=== PATIENT | female | born 1980 | race Caucasian/White ===

== ENCOUNTER 2018-10-26 12:58 | Emergency (ER) | payer SELFPAY ==
[~2018-10-26] VITALS: Ht 160 cm; Wt 63.5 kg
[2018-10-26 13:00] VITALS: BP 129/65
--- NOTE | 2018-10-26 13:50 | PHYS DOC ---
Past Medical History Past Medical History: No Pertinent History Past Surgical History: Alcohol Use: None Drug Use: None Adult General Chief Complaint Chief Complaint: ABDOMINAL PAIN IN HPI HPI Patient is a 38-year-old female, 6, para 4, with one prior ectopic additionally, who presents to the emergency room for evaluation. She states her LMP was at the end of August, and she took a test on Tuesday which was positive. She states that since Tuesday she has had right-sided pelvic cramping and pain. She has not had any fevers or chills, dysuria, vaginal bleeding, or discharge, dizziness, lightheadedness, nausea, vomiting. There are no alleviating or exacerbating factors to the patient's symptoms otherwise. Review of Systems Review of Systems Constitutional: Denies fever or chills [] Eyes: Denies change in visual acuity, redness, or eye pain [] HENT: Denies nasal congestion or sore throat [] Respiratory: Denies cough or shortness of breath [] Cardiovascular: The patient denies any shortness of breath, chest pain, palpitations, or orthopnea[] GI: Denies nausea, vomiting, bloody stools or diarrhea [] : Denies dysuria or hematuria [] Musculoskeletal: Denies back pain or joint pain [] Integument: Denies rash or skin lesions [] Neurologic: Denies headache, focal weakness or sensory changes [] Endocrine: Denies polyuria or polydipsia [] All other systems were reviewed and found to be within normal limits, except as documented in this note. Physical Exam Physical Exam PHYSICAL EXAM: CONSTITUTIONAL: Well developed, well nourished HEAD: normocephalic, atraumatic EENT: PERRL, EOMI. Conjunctivae normal color, sclerae non-icteric; moist mucous membranes. NECK: Supple, non-tender; no meningismus. LUNGS: Lungs CTA, breathing even and unlabored. Normal air movement. HEART: Regular rate and rhythm, no murmur CHEST: No deformity; non-tender ABDOMEN: The abdomen is soft, is mild right-sided suprapubic tenderness to palpation, the remainder the abdomen is soft and non-tender, no masses or bruits. EXTREM: Normal ROM; no deformity, no calf tenderness. Normal pulses palpable in all extremities. There is no pedal edema. SKIN: No rash; no diaphoresis NEURO: Alert; normal speech and cognition; CN's grossly intact; strength grossly intact without focal deficit. BACK: No CVA TTP. PELVIC EXAM: There is a moderate amount of whitish vaginal discharge, without active cervical discharge, the cervix is friable with some bleeding when swabbed , but there is otherwise no bleeding visualized. There is no cervical motion tenderness. There is mild right suprapubic tenderness to palpation, without any rebound tenderness, or uterine enlargement palpated. There is no left adnexal tenderness to palpation. There is no palpable pelvic masses. Exam was performed in the presence of the patient's nurse, Isa. Current Patient Data Vital Signs Vital Signs Date Time Temp Pulse Resp B/P (MAP) Pulse Ox O2 Delivery O2 Flow Rate FiO2 10/26/18 13:00 97.7 96 18 129/65 (86) 99 Room Air 97.7 Lab Values Laboratory Tests Test 10/26/18 13:00 10/26/18 13:07 10/26/18 13:15 Urine Color Yellow Urine Clarity Clear Urine pH 6.5 Urine Specific [place] 1.025 Urine Protein Negative mg/dL (NEG-TRACE) Urine Glucose (UA) Negative mg/dL (NEG) Urine Ketones (Stick) Negative mg/dL (NEG) Urine Blood Negative (NEG) Urine Nitrite Negative (NEG) Urine Bilirubin Negative (NEG) Urine Urobilinogen Dipstick 0.2 mg/dL (0.2 mg/dL) Urine Leukocyte Esterase Negative (NEG) Urine RBC 0 /HPF (0-2) Urine WBC 1-4 /HPF (0-4) Urine Squamous Epithelial Cells Occ /LPF Urine Bacteria Few /HPF (0-FEW) Urine Mucus Mod /LPF POC Urine HCG, Qualitative Hcg positive (Negative) White Blood Count 5.1 x10^3/uL (4.0-11.0) Red Blood Count 3.92 x10^6/uL (3.50-5.40) Hemoglobin 11.9 g/dL (12.0-15.5) L Hematocrit 35.6 % (36.0-47.0) L Mean Corpuscular Volume 91 fL (79-100) Mean Corpuscular Hemoglobin 30 pg (25-35) Mean Corpuscular Hemoglobin Concent 33 g/dL (31-37) Red Cell Distribution Width 14.5 % (11.5-14.5) Platelet Count 190 x10^3/uL (140-400) Neutrophils (%) (Auto) 59 % (31-73) Lymphocytes (%) (Auto) 29 % (24-48) Monocytes (%) (Auto) 7 % (0-9) Eosinophils (%) (Auto) 4 % (0-3) H Basophils (%) (Auto) 1 % (0-3) Neutrophils # (Auto) 3.0 x10^3uL (1.8-7.7) Lymphocytes # (Auto) 1.5 x10^3/uL (1.0-4.8) Monocytes # (Auto) 0.4 x10^3/uL (0.0-1.1) Eosinophils # (Auto) 0.2 x10^3/uL (0.0-0.7) Basophils # (Auto) 0.0 x10^3/uL (0.0-0.2) Maternal Serum HCG Beta Subunit 62850 mIU/mL (0-5) H Sodium Level 137 mmol/L (136-145) Potassium Level 3.8 mmol/L (3.5-5.1) Chloride Level 103 mmol/L (98-107) Carbon Dioxide Level 21 mmol/L (21-32) Anion Gap 13 (6-14) Blood Urea Nitrogen 16 mg/dL (7-20) Creatinine 0.7 mg/dL (0.6-1.0) Estimated GFR (Cockcroft-Gault) 94.2 BUN/Creatinine Ratio 23 (6-20) H Glucose Level 90 mg/dL (70-99) Calcium Level 8.8 mg/dL (8.5-10.1) Total Bilirubin 0.3 mg/dL (0.2-1.0) Aspartate Amino Transferase (AST) 12 U/L (15-37) L Alanine Aminotransferase (ALT) 13 U/L (14-59) L Alkaline Phosphatase 53 U/L (46-116) Total Protein 6.9 g/dL (6.4-8.2) Albumin 3.3 g/dL (3.4-5.0) L Albumin/Globulin Ratio 0.9 (1.0-1.7) L Laboratory Tests 10/26/18 13:15 Laboratory Tests 10/26/18 13:15 Microbiology 10/26/18 Wet Prep - Final, Complete WET PREP Final YEAST NONE SEEN TRICHOMONAS NONE SEEN CLUE CELLS CLUE CELLS PRESENT ALTERED LINDA ALTERED LINDA PRESENT SUGGESTIVE OF BACTERIAL VAGINOSIS WBCS FEW SQUAMOUS EPS MANY EKG EKG [] Radiology/Procedures Radiology/Procedures [PROCEDURE: OB <14 WKS W/TV OB <14 WKS W/TV History: Pelvic pain Comparison: None. Findings: Multiple transabdominal sonographic images of the pelvis are submitted. Right ovary measured 2.8 x 2.3 x 2.6 m with normal low resistance vascularity. Left ovary measured 3.2 x 1.8 x 4.5 cm, normal low resistance vascularity. There is a small focus of hypoechogenicity left ovary about 1.4 cm greatest dimension. Uterus measured 8.1 x 6.8 x 7.9 cm. There is a single intrauterine gestational sac. Transvaginal ultrasound: Multiple transvaginal sonographic images of pelvis are submitted. Uterus measured 10 x 6.5 x 8.3 cm. There is a single intrauterine gestational sac. There is identifiable yolk sac. pole and cardiac activity are not seen at this time. Placenta is not well visualized at this age of the . Amniotic fluid volume is within normal limits. Gestational sac morphology is within normal limits. Mean sac dimension 1.64 cm corresponds 6 weeks 3 days. Adjusted ultrasound age is 6 weeks 3 days with estimated delivery date by ultrasound of 06/18/2019. LMP age is 6 weeks 1 day with estimated delivery date of 06/20/2019. Right ovary measured 3.6 x 2.3 x 2.3 cm, normal low resistance vascularity and color flow. There is mild nonspecific free fluid. Impression: 1. There is a single intrauterine gestational sac. There is visible yolk sac although pole and cardiac activity not seen at this time although may be due to to early stage of for which short-term interval follow-up imaging and correlation with quantitative beta hCG values may be beneficial. There is minimal nonspecific free fluid in the pelvis.] Course & Med Decision Making Course & Med Decision Making Pertinent Labs and Imaging studies reviewed. (See chart for details) [4:00 PM: The patient's condition remained stable. She remains ] comfortable. I discussed the case with Dr. Luong, [facility] on-call. The patient's beta hCG is somewhat higher than would be expected for the early seen on ultrasound, but no other definitive evidence of ectopic seen at this time. I discussed importance of close follow-up with the patient, something Dr. Luong said she would ensure, and discussed return precautions in detail with the patient. Dragon Disclaimer Dragon Disclaimer This electronic medical record was generated, in whole or in part, using a voice recognition dictation system. Departure Departure Impression: Primary Impression: Pelvic pain affecting Additional Impression: Bacterial vaginosis Disposition: HOME, SELF-CARE Condition: STABLE Referrals: SEGUN MARTIN MD Patient Instructions: Abdominal Pain During Additional Instructions: It is important that you obtain close follow-up with [facility] in the coming days to ensure that the pain and discomfort your having is not related to an ectopic or tubal . Please contact the [facility] physician as instructed tomorrow to schedule appointment in the coming days, for further evaluation. Tylenol as needed for pain. Return to medical care for any new or worsening symptoms, development of increasing pain, vaginal bleeding, dizziness or lightheadedness, or any other new or concerning symptoms. Problem Qualifiers PALMA PRADO MD Oct 26, 2018 13:50
[2018-10-26 13:56] LABS: BILIRUBIN,URINE NEGATIVE (NEG); CLARITY,URINE CLEAR; COLOR,URINE YELLOW; NITRITE,URINE NEGATIVE (NEG); PH,URINE 6.5; PROTEIN,URINE NEGATIVE (NEG-TRACE); UROBILINOGEN,URINE 0.2 mg/dL (0.2 mg/dL)
[2018-10-26 14:05] LABS: BACTERIA,URINE FEW /HPF (0-FEW); RBC,URINE 0 /HPF (0-2); SQUAMOUS EPITHELIAL CELL,UR OCC /LPF
[2018-10-26 14:15] LABS: BASO % 1 % (0-3); EOS # 0.2 x10^3/uL (0.0-0.7); EOS % 4 % (0-3); HEMATOCRIT 35.6 % (36.0-47.0); HEMOGLOBIN 11.9 g/dL (12.0-15.5); LYMPH # 1.5 x10^3/uL (1.0-4.8); LYMPH % 29 % (24-48); MEAN CORPUSCULAR HEMOGLOBIN 30 pg (25-35); MEAN CORPUSCULAR HGB CONC 33 g/dL (31-37); MEAN CORPUSCULAR VOLUME 91 fL (79-100); MONO # 0.4 x10^3/uL (0.0-1.1); MONO % 7 % (0-9); NEUT % 59 % (31-73); PLATELET COUNT 190 x10^3/uL (140-400); RED BLOOD COUNT 3.92 x10^6/uL (3.50-5.40); RED CELL DISTRIBUTION WIDTH 14.5 % (11.5-14.5); WHITE BLOOD COUNT 5.1 x10^3/uL (4.0-11.0)
[2018-10-26 14:38] LABS: CALCIUM 8.8 mg/dL (8.5-10.1); CREATININE 0.7 mg/dL (0.6-1.0); GFR 94.2; POTASSIUM 3.8 mmol/L (3.5-5.1)
[2018-10-26 14:44] LABS: ALBUMIN 3.3 g/dL (3.4-5.0); ALBUMIN/GLOBULIN RATIO 0.9 (1.0-1.7); TOTAL BILIRUBIN 0.3 mg/dL (0.2-1.0); TOTAL PROTEIN 6.9 g/dL (6.4-8.2)
--- NOTE | 2018-10-26 15:51 | RAD ---
OB <14 WKS W/TV History: Pelvic pain Comparison: None. Findings: Multiple transabdominal sonographic images of the pelvis are submitted. Right ovary measured 2.8 x 2.3 x 2.6 m with normal low resistance vascularity. Left ovary measured 3.2 x 1.8 x 4.5 cm, normal low resistance vascularity. There is a small focus of hypoechogenicity left ovary about 1.4 cm greatest dimension. Uterus measured 8.1 x 6.8 x 7.9 cm. There is a single intrauterine gestational sac. Transvaginal ultrasound: Multiple transvaginal sonographic images of pelvis are submitted. Uterus measured 10 x 6.5 x 8.3 cm. There is a single intrauterine gestational sac. There is identifiable yolk sac. pole and cardiac activity are not seen at this time. Placenta is not well visualized at this age of the . Amniotic fluid volume is within normal limits. Gestational sac morphology is within normal limits. Mean sac dimension 1.64 cm corresponds 6 weeks 3 days. Adjusted ultrasound age is 6 weeks 3 days with estimated delivery date by ultrasound of 06/18/2019. LMP age is 6 weeks 1 day with estimated delivery date of 06/20/2019. Right ovary measured 3.6 x 2.3 x 2.3 cm, normal low resistance vascularity and color flow. There is mild nonspecific free fluid. Impression: 1. There is a single intrauterine gestational sac. There is visible yolk sac although pole and cardiac activity not seen at this time although may be due to to early stage of for which short-term interval follow-up imaging and correlation with quantitative beta hCG values may be beneficial. There is minimal nonspecific free fluid in the pelvis. Electronically signed by: Jluis Tolentino MD (10/26/2018 3:47 PM) [facility]
[2018-10-26] MEDS ORDERED: METR500T PO (16:03)
[2018-10-27 12:26] LABS: GC PROBE Negative (Negative)
== END 2018-10-26 16:18 | disposition home or self-care (01) ==
LOC: ER 12:58
DX: O23.591 Infection of other part of genital tract in pregnancy, first trimester (principal); R10.2 Pelvic and perineal pain; B96.89 Other specified bacterial agents as the cause of diseases classified elsewhere; Z98.890 Other specified postprocedural states; Z3A.01 Less than 8 weeks gestation of pregnancy
CPT/HCPCS: 36415; 76801; 76817; 80053; 81001; 81025; 84702; 85025; 86900; 86901; 87491; 87591; 99284; Q0111

== ENCOUNTER 2018-12-17 01:59 | Emergency (ER) | payer OTHER ==
[~2018-12-17] VITALS: Ht 157.5 cm; Wt 72.6 kg
[~2018-12-17 01:59] MED LIST: METR500T PO
[2018-12-17 02:00] VITALS: BP 126/70
--- NOTE | 2018-12-17 02:15 | PHYS DOC ---
Past Medical History Past Medical History: No Pertinent History Past Surgical History: Alcohol Use: None Drug Use: None Adult General Chief Complaint Chief Complaint: CONSTIPATION HPI HPI Patient is a 38 year old female presented to the ER today for evaluation due to constipation. Patient is 14 weeks . She said she has not have a bowel movement for 6 days. Patient drank some miralax today already but no bowel movement, she has cramping in her upper abdomen. Patient denied any nausea or vomiting. No pelvic pain, no vaginal bleeding. Patient has OB CARE ALREADY, HAD PREVIOUS PELVIC ULTRASOUND DONE TO CONFIRM INTRAUTERINE ALREADY. She is scheduled to see her [facility] NURSE DOCTOR ON TUESDAY. NO FEVER. Review of Systems Review of Systems Constitutional: Denies fever or chills [] Eyes: Denies change in visual acuity, redness, or eye pain [] HENT: Denies nasal congestion or sore throat [] Respiratory: Denies cough or shortness of breath [] Cardiovascular: No additional information not addressed in HPI [] GI: Denies abdominal pain, nausea, vomiting, bloody stools or diarrhea [] : Denies dysuria or hematuria [] Musculoskeletal: Denies back pain or joint pain [] Integument: Denies rash or skin lesions [] Neurologic: Denies headache, focal weakness or sensory changes [] Endocrine: Denies polyuria or polydipsia [] All other systems were reviewed and found to be within normal limits, except as documented in this note. Allergies Allergies Allergies Coded Allergies Type Severity Reaction Last Updated Verified No Known Drug Allergies 10/26/18 No Physical Exam Physical Exam Constitutional: Well developed, well nourished, no acute distress, non-toxic appearance. [] HENT: Normocephalic, atraumatic, bilateral external ears normal, oropharynx moist, no oral exudates, nose normal. [] Eyes: PERRLA, EOMI, conjunctiva normal, no discharge. [] Neck: Normal range of motion, no tenderness, supple, no stridor. [] Cardiovascular:Heart rate regular rhythm, no murmur [] Lungs & Thorax: Bilateral breath sounds clear to auscultation [] Abdomen: Bowel sounds HYPERACTIVE, soft, no tenderness, no masses, no pulsatile masses. [] Skin: Warm, dry, no erythema, no rash. [] Back: No tenderness, no CVA tenderness. [] Extremities: No tenderness, no cyanosis, no clubbing, ROM intact, no edema. [] Neurologic: Alert and oriented X 3, normal motor function, normal sensory function, no focal deficits noted. [] Psychologic: Affect normal, judgement normal, mood normal. [] Current Patient Data Vital Signs Vital Signs Date Time Temp Pulse Resp B/P (MAP) Pulse Ox O2 Delivery O2 Flow Rate FiO2 12/17/18 02:00 98.8 99 18 100 Room Air 98.8 EKG EKG [] Radiology/Procedures Radiology/Procedures [] Course & Med Decision Making Course & Med Decision Making Pertinent Labs and Imaging studies reviewed. (See chart for details) Patient did not want to have a fleet enema done in the ER. She said she would buy it over the counter and do it at home when she got home. Dragon Disclaimer Dragon Disclaimer This electronic medical record was generated, in whole or in part, using a voice recognition dictation system. Departure Departure Impression: Primary Impression: Constipation Disposition: HOME, SELF-CARE Condition: STABLE Referrals: NO PCP (PCP) FOLLOW UP WITH YOUR [facility] NURSE SCHEDULED ON TUESDAY Patient Instructions: ABCs of , Constipation, Adult Additional Instructions: USE OVER THE COUNTER FLEET ENEMA GYPSY JEAN DO Dec 17, 2018 02:15
== END 2018-12-17 02:18 | disposition home or self-care (01) ==
LOC: ER 01:59
DX: O26.891 Other specified pregnancy related conditions, first trimester (principal); K59.00 Constipation, unspecified
CPT/HCPCS: 99284

== ENCOUNTER 2019-06-13 05:25 | Inpatient (IN) | payer MEDICAID ==
[~2019-06-13] VITALS: Ht 160 cm; Wt 85.3 kg
[2019-06-13] MEDS ORDERED: TERBUTALINE 1 MG/ML VIAL. SQ PRN (05:45)
[2019-06-13] MEDS ORDERED: 0.9 % SODIUM CHLORIDE 10 ML DISP.SYRIN. IV PRN ×2 (05:45→08:45)
[2019-06-13] MEDS ORDERED: CITRIC ACID/SODIUM CITRATE 30 ML SOLUTION. PO PRN (05:45)
[2019-06-13] MEDS ORDERED: IV RINGERS,LACTATED 1000ML 1,000 ML IV SCH ×2 (05:45→07:00)
[2019-06-13 06:04] LABS: AMPHETAMINE/METHAMPHETAMINE NEG (NEG); BARBITURATES NEG (NEG); BENZODIAZEPINES NEG (NEG); CANNABINOIDS NEG (NEG); COCAINE NEG (NEG); METHADONE NEG (NEG); OPIATES NEG (NEG); PHENCYCLIDINE NEG (NEG)
[2019-06-13 06:17] LABS: BILIRUBIN,URINE NEGATIVE (NEG); CLARITY,URINE CLEAR; COLOR,URINE YELLOW; NITRITE,URINE NEGATIVE (NEG); PROTEIN,URINE NEGATIVE (NEG-TRACE); UROBILINOGEN,URINE 0.2 mg/dL (0.2 mg/dL)
[2019-06-13] MEDS ORDERED: OXYTOCIN 10 UNIT/ML VIAL. ONE ×3 (06:41→08:06)
[2019-06-13] MEDS ORDERED: ePHEDrine PF IN SALINE 50 MG/10 ML SYRINGE. IV ONE (06:42)
[2019-06-13] MEDS ORDERED: PHENYLEPHRINE in 0.9% NACL PF 1 MG/10 ML SYRINGE. IV ONE ×2 (06:42→07:25)
[2019-06-13] MEDS ORDERED: ONDANSETRON PF 4 MG/2 ML VIAL. ONE ×3 (06:42→07:25)
[2019-06-13] MEDS ORDERED: FAMOTIDINE 20 MG/2 ML VIAL ONE ×2 (06:43→07:25)
[2019-06-13] MEDS ORDERED: METOCLOPRAMIDE HCL 10 MG/2 ML VIAL. ONE ×2 (06:43→07:25)
[2019-06-13] MEDS ORDERED: PROCHLORPERAZINE 10 MG/2 ML VIAL. IV PRN (07:00)
[2019-06-13] MEDS ORDERED: HYDROmorphone 2 MG/ML VIAL IV PRN (07:00)
[2019-06-13] MEDS ORDERED: LIDOCAINE 1% PF 2 ML VIAL. ID PRN (07:00)
[2019-06-13] MEDS ORDERED: fentaNYL PF VIAL 100 MCG/2 ML VIAL IV PRN ×2 (07:00)
[2019-06-13] MEDS ORDERED: ONDANSETRON PF 4 MG/2 ML VIAL. IV PRN ×2 (07:00→08:45)
[2019-06-13] MEDS ORDERED: MORPHINE SULFATE 2 MG/ML VIAL. IV PRN (07:00)
[2019-06-13 07:17] LABS: BASO % 0 % (0-3); EOS # 0.1 x10^3/uL (0.0-0.7); EOS % 2 % (0-3); HEMATOCRIT 26.1 % (36.0-47.0); HEMOGLOBIN 8.7 g/dL (12.0-15.5); LYMPH # 1.7 x10^3/uL (1.0-4.8); LYMPH % 19 % (24-48); MEAN CORPUSCULAR HEMOGLOBIN 28 pg (25-35); MEAN CORPUSCULAR HGB CONC 33 g/dL (31-37); MEAN CORPUSCULAR VOLUME 85 fL (79-100); MONO # 0.4 x10^3/uL (0.0-1.1); MONO % 5 % (0-9); NEUT # 6.5 x10^3/uL (1.8-7.7); NEUT % 74 % (31-73); PLATELET COUNT 208 x10^3/uL (140-400); RED BLOOD COUNT 3.07 x10^6/uL (3.50-5.40); WHITE BLOOD COUNT 8.8 x10^3/uL (4.0-11.0)
[2019-06-13] MEDS ORDERED: fentaNYL PF VIAL 100 MCG/2 ML VIAL ONE (07:23)
[2019-06-13] MEDS ORDERED: MORPHINE PF 10 MG/10 ML AMPUL. ONE (07:24)
--- NOTE | 2019-06-13 08:44 | PDOC1 ---
OB - History Hx of Present Care: Good Care Ultrasounds: Normal mid trimester US Obstetrical Complications: None Medical Complications: None Past Family/Social History * Past Medical, Surgical, Family and Obstetric Histories reviewed from chart. Blood Type: O+ Rubella: Immune GBS Status: Positive HBsAG: Negative OB - Chief Complaint & HPI Date of Admission: Date of Admission: Jun 13, 2019 at 05:25 Chief Complaint/History : 6 Para: 4 Reason for admission: section Admission Nurse Assessment Rev: Yes OB - Admission Exam Physical Exam HEENT: Normal, Nasal Mucosa Normal, Oropharynx Normal, Moist Membranes, Fontanelles Normal Heart: Regular Rate Lungs: Clear, Equal Abdomen: Gravid Extremities: Normal Pulses, No tenderness or swelling Reflexes: Normal Cervical Dilatation: None Effacement: 0% Station: Ballotable Membranes: Intact Amniotic Fluid: Clear Heart Rate: Normal Accelerations: Accelerations Present Short Term Variability: Present Contractions on Admission: None Assessment/Plan Assessment/Plan TIUP JUDITHTC/S ALEX BALDREAS MD Jun 13, 2019 08:44
[2019-06-13] MEDS ORDERED: MMR per PROTOCOL. MC PRN (08:45)
[2019-06-13] MEDS ORDERED: OXYTOCIN 30 UNIT/500 ML PREMIX 500 ML IV PRN (08:45)
[2019-06-13] MEDS ORDERED: ZOLPIDEM 5 MG TABLET. PO PRN (08:45)
[2019-06-13] MEDS ORDERED: MAG HYDROX/ALUMINUM HYD/SIMETH 30 ML ORAL.SUSP PO PRN (08:45)
--- NOTE | 2019-06-13 08:46 | PDOC ---
BRIEF OPERATIVE NOTE Pre-Op Diagnosis TIUP RLTC/S Post-Op Diagnosis Same Procedure Performed RLTC/S Surgeon Gillian Anesthesia Type: Regional Blood Loss 600cc Specimens Obtained none Findings 7# girl Complications none ALEX BALDERAS MD Jun 13, 2019 08:46
--- NOTE | 2019-06-13 09:00 | OP ---
DATE OF SURGERY: 06/13/2019 PREOPERATIVE DIAGNOSIS: Term intrauterine , desires repeat . POSTOPERATIVE DIAGNOSIS: Term intrauterine , desires repeat . PROCEDURE: Repeat low transverse . SURGEON: Jose De Jesus French MD POSITIVE PRINTER OPERATOR: None. ANESTHESIA: Regional. FINDINGS: Normal female , Apgars 8, 9 and 9; weight 7 pounds. Normal uterus, tubes and ovaries. ESTIMATED BLOOD LOSS: 600 mL. FLUIDS: Crystalloid. SPECIMENS: None. COMPLICATIONS: None. CONDITION: Stable. DESCRIPTION OF PROCEDURE: After risks, benefits, indication, alternatives discussed in detail with the patient. The patient was brought to the OR theater, placed in the supine position with left lateral uterine displacement. After adequate regional anesthesia was assessed, the patient was prepped and draped in usual sterile manner. Low transverse Pfannenstiel incision was incised with the scalpel, carried down through the subcutaneous tissue with Bovie cautery. Rectus fascia was nicked in the midline, extended laterally in each direction with Bovie cautery. Upper edge of rectus fascia was grasped x 2 with Steffany clamps, both bluntly with gloved hand and sharply with Bovie cautery. The same procedure was carried out on lower edge of the rectus fascia. Rectus muscles entered midline with Bovie cautery with care not to injure any underlying structures. The incision was extended superiorly and inferiorly with Bovie cautery. With gentle stretch on rectus muscle, room was made for delivery of the infant. Daniel retractor was placed within the lower uterine segment. Sponges were placed bilaterally and the pelvic gutters. A low transverse hysterotomy incision was made sharply with a scalpel with care not to injure any underlying structures. This incision was extended laterally and upwardly with gloved hand. Gloved hand was placed in the lower uterine segment, used to elevate the head with fundal pressure from the veterinarian assistant. Infant was delivered on anterior abdominal wall. cried spontaneously and moved all extremities. Cord was doubly clamped, transected cord between 2 clamps and infant was handed off to nursing care in attendance. Cord blood samples were taken. Placenta delivered spontaneously intact, 3-vessel cord. Any adherent membranes were wiped free with a laparotomy sponge. Low transverse hysterotomy incision was reapproximated with 0 Monocryl in a running locking manner, imbricated with 0 Monocryl in a horizontal mattress stitch fashion. Lower uterine segment was inspected and noted to be free of any blood or debris. The sponges were removed from the gutters. Rectus muscle was reapproximated to the midline with 3-0 Vicryl in a horizontal mattress stitch fashion. Rectus muscle was inspected and noted to be hemostatic. Rectus fascia was reapproximated with Stratafix 0 Prolene. Subcutaneous tissue was irrigated copiously with warm normal saline. Skin was reapproximated with Insorb raf. Sponge, needle and instrument counts were correct x 2 per nursing staff. JOSE ED JESUS FRENCH MD DR: CURTIS/lilibeth JOB#: [id number] / [id number]
[2019-06-13] MEDS ORDERED: PNV1TABL25 PO (09:12)
[2019-06-13] MEDS: FERROUS SULFATE 325 MG TABLET. PO SCH ×2 (09:30→19:38)
[2019-06-13] MEDS: KETOROLAC 30 MG/ML VIAL. IV PRN ×2 (10:57→18:28)
[2019-06-13 11:15] VITALS: BP 139/88
[2019-06-13 12:00] VITALS: BP 140/84
[2019-06-13] MEDS ORDERED: ceFAZolin 2GM PREMIX 2 GM/50 ML BAG IV ONE (12:00)
[2019-06-13] MEDS ORDERED: FLU VAX QS 2019-20 (36MOS+)/PF 0.5 ML SYRINGE. VAX IM ONE (12:00)
[2019-06-13] MEDS ORDERED: DIPHTH,PERTUSS(ACELL),TET TOX 0.5 ML DISP.SYRIN. VAX IM ONE (12:00)
[2019-06-13 13:12] VITALS: BP 149/86
[2019-06-13] MEDS ORDERED: ceFAZolin SODIUM 1 GM in IV DEXTROSE 5% 50 ML IV SCH (14:00)
[2019-06-13] MEDS ORDERED: IBUPROFEN 400 MG TABLET. PO SCH (14:00)
[2019-06-13 14:33] VITALS: BP 142/82
[2019-06-13] MEDS: oxyCODONE/APAP 5/325 1 TAB TABLET PO PRN ×5 (14:47→21:55)
[2019-06-13] MEDS: diphenhydrAMINE ORAL ELIXIR 12.5 MG/5 ML ML PO PRN (14:47)
[2019-06-13 16:00] VITALS: BP 146/84
[2019-06-13] MEDS: ceFAZolin SODIUM IV Push 1 GM VIAL. IVP SCH (17:52)
[2019-06-13] MEDS: DOCUSATE SODIUM 100 MG CAPSULE. PO PRN (19:38)
[2019-06-13 19:45] VITALS: BP 142/87
--- NOTE | 2019-06-13 20:25 | NUR ---
2 percocet scanned, pt. stated she only wanted one. 1 percocet tab administered. eMAR adjusted accordingly.
[2019-06-14] MEDS: ceFAZolin SODIUM IV Push 1 GM VIAL. IVP SCH (00:11)
[2019-06-14] MEDS: KETOROLAC 30 MG/ML VIAL. IV PRN (00:11)
[2019-06-14 00:20] VITALS: BP 124/83
[2019-06-14] MEDS: diphenhydrAMINE ORAL ELIXIR 12.5 MG/5 ML ML PO PRN (00:23)
[2019-06-14] MEDS: oxyCODONE/APAP 5/325 1 TAB TABLET PO PRN ×5 (03:57→21:12)
[2019-06-14] MEDS: FERROUS SULFATE 325 MG TABLET. PO SCH ×2 (08:00→15:51)
[2019-06-14] MEDS: DOCUSATE SODIUM 100 MG CAPSULE. PO PRN ×2 (08:00→15:51)
[2019-06-14] MEDS: IBUPROFEN 400 MG TABLET. PO PRN ×3 (08:01→21:12)
[2019-06-14] MEDS: NICOTINE 14MG PATCH. TD SCH ×2 (08:01→19:02)
[2019-06-14 08:36] LABS: BASO % 1 % (0-3); EOS # 0.1 x10^3/uL (0.0-0.7); EOS % 2 % (0-3); HEMATOCRIT 22.8 % (36.0-47.0); HEMOGLOBIN 7.7 g/dL (12.0-15.5); LYMPH # 1.6 x10^3/uL (1.0-4.8); LYMPH % 26 % (24-48); MEAN CORPUSCULAR HEMOGLOBIN 28 pg (25-35); MEAN CORPUSCULAR HGB CONC 34 g/dL (31-37); MEAN CORPUSCULAR VOLUME 84 fL (79-100); MONO # 0.2 x10^3/uL (0.0-1.1); MONO % 3 % (0-9); NEUT # 4.3 x10^3/uL (1.8-7.7); NEUT % 69 % (31-73); PLATELET COUNT 180 x10^3/uL (140-400); RED BLOOD COUNT 2.71 x10^6/uL (3.50-5.40); RED CELL DISTRIBUTION WIDTH 16.2 % (11.5-14.5); WHITE BLOOD COUNT 6.3 x10^3/uL (4.0-11.0)
[2019-06-14 11:30] VITALS: BP 130/84
--- NOTE | 2019-06-14 14:12 | PDOC ---
Provider Note Provider Note Doing well VSS Dressing CDI FU in AM ALEX BALDERAS MD Jun 14, 2019 14:12
[2019-06-14] MEDS: SIMETHICONE 80 MG TAB.CHEW PO PRN ×2 (17:58→21:11)
[2019-06-14 18:00] VITALS: BP 154/93
[2019-06-14] MEDS: MAGNESIUM HYDROXIDE 2,400 MG/30 ML ORAL.SUSP. PO PRN (18:02)
[2019-06-14 21:05] VITALS: BP 139/92
[2019-06-14] MEDS: diphenhydrAMINE HCL 25 MG CAPSULE PO PRN (21:11)
[2019-06-15 01:27] VITALS: BP 128/76
[2019-06-15] MEDS: oxyCODONE/APAP 5/325 1 TAB TABLET PO PRN ×4 (01:33→22:14)
[2019-06-15] MEDS: IBUPROFEN 400 MG TABLET. PO PRN ×3 (04:55→21:03)
[2019-06-15] MEDS: diphenhydrAMINE HCL 25 MG CAPSULE PO PRN (05:01)
[2019-06-15] MEDS: SIMETHICONE 80 MG TAB.CHEW PO PRN ×3 (05:01→17:43)
[2019-06-15] MEDS: DOCUSATE SODIUM 100 MG CAPSULE. PO PRN ×2 (05:01→17:43)
[2019-06-15] MEDS: MAGNESIUM HYDROXIDE 2,400 MG/30 ML ORAL.SUSP. PO PRN (05:01)
[2019-06-15 05:05] VITALS: BP 128/86
[2019-06-15] MEDS: FERROUS SULFATE 325 MG TABLET. PO SCH ×2 (08:41→17:43)
--- NOTE | 2019-06-15 11:58 | PDOC ---
Provider Note Provider Note Doing well VSS Dressing CDI FU in AM ALEX BALDERAS MD Jun 15, 2019 11:58
[2019-06-15 12:00] VITALS: BP 134/85
[2019-06-15] MEDS: NICOTINE 21MG PATCH. TD SCH (13:01)
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
[2019-06-15 17:54] VITALS: BP 161/103
[2019-06-15 20:45] VITALS: BP 148/94
[2019-06-16] MEDS ORDERED: BISACODYL 10 MG SUPP.RECT. PR PRN
[2019-06-16 03:47] VITALS: BP 137/87
[2019-06-16] MEDS: oxyCODONE/APAP 5/325 1 TAB TABLET PO PRN ×2 (03:48→09:01)
[2019-06-16] MEDS: NICOTINE 21MG PATCH. TD SCH (08:59)
[2019-06-16] MEDS: MAGNESIUM HYDROXIDE 2,400 MG/30 ML ORAL.SUSP. PO PRN (08:59)
[2019-06-16] MEDS: FERROUS SULFATE 325 MG TABLET. PO SCH (09:00)
[2019-06-16] MEDS: DOCUSATE SODIUM 100 MG CAPSULE. PO PRN (09:00)
[2019-06-16] MEDS: IBUPROFEN 400 MG TABLET. PO PRN (09:00)
[2019-06-16] MEDS: SIMETHICONE 80 MG TAB.CHEW PO PRN (09:01)
--- NOTE | 2019-06-16 10:24 | PDOC3 ---
OB DISCHARGE SUMMARY DATE OF ADMISSION: 06/13/19 DATE OF DISCHARGE: 06/16/19 REASON FOR ADMISSION: section INTRAPARTUM PROCEDURES: : Low Cerv Trans DISCHARGE DIAGNOSIS: Term Delivered DISCHARGE INFORMATION: Activity (ad daria), Diet (regular), Instructions (pelvic rest x 6 ws, no driving x 2 wks, no lifting > 20 lbs. x 4 wks) HOSPITAL COURSE Term gestation delivered via section without complications. BA OROZCO Jr, MD Jun 16, 2019 10:24
[2019-06-16] MEDS ORDERED: Nicotine 21MG TD (10:27)
[2019-06-16] MEDS ORDERED: FERR325T72 PO (10:27)
[2019-06-16] MEDS ORDERED: OXYC1TAB15 PO (10:27)
[2019-06-16] MEDS ORDERED: NAPR-514 PO (10:27)
[2019-06-16] MEDS ORDERED: DOCU-109 PO (10:27)
--- NOTE | 2019-06-16 10:28 | DISCH ---
DISCHARGE INSTRUCTIONS Condition on Discharge Condition on Discharge: Stable Activity After Discharge Activity Instructions for Disc: Activity as tolerated Lifting Instructions after Dis: No heavy lifting Driving Instructions after Dis: No driving for 2 weeks Diet after Discharge Diet after Discharge: Regular Contacting the DRFarideh after DC Call your doctor for: Concerns you may have Follow-Up Follow up with: Dr. French in 1 wk BA OROZCO Jr, MD Jun 16, 2019 10:28
[2019-06-16 10:30] VITALS: BP 138/86
[2019-06-16 13:30] VITALS: BP 142/93
== END 2019-06-16 14:45 | disposition home or self-care (01) | DRG 788 ==
LOC: 3 SO LND 05:25 → 3 NORTH 10:41
PROVIDERS: ADMIT Specialist; ATTEND Specialist
PROC: 10D00Z1 Extraction of Products of Conception, Low, Open Approach (ICD-10-PCS; principal; 2019-06-13)
DX: O34.211 Maternal care for low transverse scar from previous cesarean delivery (principal); O99.824 Streptococcus B carrier state complicating childbirth; Z37.0 Single live birth; Z3A.00 Weeks of gestation of pregnancy not specified
CPT/HCPCS: 36415; 80307; 81003; 85025; 86592; 86850; 86900; 86901; 87340; 90471; 90686; 90715; J0171; J0690; J0696; J1885; J2274; J2370; J2405; J2590; J2765; J3010; J3490; J7120; Q0163; G0378